=== PATIENT | female | born 1955 ===

== ENCOUNTER 2018-09-12 13:28 | Emergency (ER) | payer OTHER, BC ==
[2018-09-12 13:34] VITALS: RESP 18; O2SAT 100
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
[2018-09-12 15:41] VITALS: BP 133/86; PULSE 62; TEMP 97.7
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
== END 2018-09-12 15:46 | disposition home or self-care (01) ==
LOC: H.ER 13:28
DX: M25.512 Pain in left shoulder (principal); M54.9 Dorsalgia, unspecified; S16.1XXA Strain of muscle, fascia and tendon at neck level, initial encounter; V43.52XA Car driver injured in collision with other type car in traffic accident, initial encounter; Y92.410 Unspecified street and highway as the place of occurrence of the external cause; I10 Essential (primary) hypertension; Z85.3 Personal history of malignant neoplasm of breast
CPT/HCPCS: 72114; 73030; 96372; 99285; J1885